=== PATIENT | female | born 1980 | race African-American/Black ===

== ENCOUNTER 2017-06-05 15:15 | Day surgery (SDC) | payer OTHER ==
[2017-06-05 15:43] VITALS: BMI 24.0
[2017-06-05 15:44] VITALS: BP 140/81; TEMP 98.5
--- NOTE | 2017-06-05 22:04 | PRG ---
DATE OF SERVICE: 06/05/2017 CHIEF COMPLAINT: Fall. HISTORY OF PRESENT ILLNESS: The patient is a 37-year-old G4, P3 female with an intrauterine pregnan cy at 22 weeks, who presented to Labor and Delivery by ambulance after experiencing a fall down [address] st eps. The patient reports landing on her bottom and her back and then subsequently rolling to her be lly. She denies any direct trauma to her belly. The event occurred approximately 1:30 in the after noon. The patient denies any vaginal bleeding. She denies any uterine contractions. She denies an y chest pain, shortness of breath, nausea, vomiting. She denies any recent illness, fever, or fall. She denies any hip problems or knee problems. She does report she has had some back pains in the past. PAST MEDICAL HISTORY: Chronic hypertension. PAST SURGICAL HISTORY: She has had 3 prior C-sections. SOCIAL HISTORY: Tobacco user; smokes about 4 cigarettes a day. MEDICATIONS: vitamins. OB LABS: Unavailable. REVIEW OF SYSTEMS: Per HPI. PHYSICAL EXAMINATION: VITAL SIGNS: Blood pressure 140/89, pulse of 66, respiratory rate of 18, satting 98% on room air, a nd temperature 98.5. GENERAL: She appears to be in no acute distress. She is alert, oriented, cooperative, and pleasant to interact with. HEENT: Head is normocephalic, atraumatic. LUNGS: Clear to auscultation bilaterally. HEART: Has a regular rate and rhythm. ABDOMEN: Soft and gravid. EXTREMITIES: Nontender, nonedematous. HEART TRACING: We had heart tones in the 140s. Contractions show very minimal irritability, not felt by the patient. The patient has continued monitoring to 5 hours after the incident and is reporting that she is feeling good, not have any bleeding, no contractions perceptible. ASSESSMENT AND PLAN: The patient is a 37-year-old female, who has been monitored after a fall onto her back and then rolled on her side. No evidence of abruption or any acute trauma to the baby visi ble on the monitoring. She has been given reassurance and has been discharged home with instruction s to follow up with her primary OB as scheduled.
== END 2017-06-05 18:20 | disposition home or self-care (01) ==
LOC: L&D/OP 15:15
PROVIDERS: ATTEND Family Medicine
DX: O99.89 Other specified diseases and conditions complicating pregnancy, childbirth and the puerperium (principal); O09.522 Supervision of elderly multigravida, second trimester; O10.012 Pre-existing essential hypertension complicating pregnancy, second trimester; O99.332 Smoking (tobacco) complicating pregnancy, second trimester; F17.210 Nicotine dependence, cigarettes, uncomplicated; Z79.899 Other long term (current) drug therapy; Z3A.22 22 weeks gestation of pregnancy; Z98.891 History of uterine scar from previous surgery
CPT/HCPCS: 96360; 96361